=== PATIENT | male | born 1970 | race Caucasian/White ===

== ENCOUNTER 2017-01-15 02:42 | Emergency (ER) | payer OTHER ==
--- NOTE | ~2017-01-15 | CR141 ---
[facility] A Service of [facility] RADIOLOGY TEXT RESULTS PATIENT: MICHAEL GARCIA LOCATION: [facility] : 68 UNIT #: [id number] AGE: [address]: RUIZ ALEGRIA APRN SEX: M ORDER DR: [id number] [facility] [address] [place], [place] [address] [id number] MR#: [id number] Acc #: [id number] NAME: MICHAEL GARCIA. : 1970 SEX: M STUDY DATE/TIME: 01/15/2017 2:45 UNIT: [facility] ROOM: STUDY DESCRIPTION: CR Hand Min 3 Views Lt Attending Physician: Ruiz Alegria Aprn Ordering Physician: Ruiz Alegria Aprn Primary Care Physician: Raffi Verde M.D. MEDICAL IMAGING REPORT This report is preliminary unless electronic signature is present EXAM Left hand, 3 views COMPARISON August 09, 2012. INDICATIONS 46-year-old male with laceration to the dorsum of the hand while working on a car tonight. Left hand pain. FINDINGS There is a laceration seen at the level of the fourth and fifth distal metacarpals. No associated radiopaque foreign body. There is a healed fracture of the fifth metacarpal. The bones are anatomically aligned. No evidence of acute fracture. IMPRESSION No acute fracture, dislocation or radiopaque foreign body. Dictated by... Ivan Manjarrez M.D. THIS IS AN ELECTRONICALLY VERIFIED REPORT Ivan Manjarrez M.D. at 01/18/2017 7:45 PM Gisel TD: 01/15/2017 08:53 JOB #: [id number] MEDICAL IMAGING REPORT COPY
[~2017-01-15 02:42] MED LIST: ACETAMINOPHEN PO; ACETAMINOPHEN650 M1 PO; AMOXICILLIN PO; ANTIBIOTIC PO; ASPIRIN PO; ASPIRIN325 M1; ASPIRIN81 M2; ASPIRIN81 MG PO; BACTROBAN; BAYER ASPIRIN325 M1 PO; CALCIUM 500 + D1 TAB PO; CENTRUM PO; CERTAGEN PO; COLACE PO; DARVOCET-N 1001 TAB PO; FISH OIL 1,0001 CAP PO; FISH OIL 1,001000 MG PO; IBUPROFEN PO; IBUPROFEN800 MG PO; IRON1 TA1 PO; KEFLEX PO; KEFLEX500 MG PO; LISINOPRIL5 MG; LORTAB 5/500 TA1 TA1 PO; MILK OF MAGNESIA PO; MULTI-DAY1 TAB; MULTIVITAMIN1 UDCAP PO; OYSTER CALCIUM500 MG PO; PEPCID PO; PRILOSEC PO; ULTRAM PO; VICODIN PO; VITAMIN C1000 M2 PO; VITAMIN D1000 UNI1 PO
== END 2017-01-15 04:50 | disposition home or self-care (01) ==
LOC: CED 02:42
DX: S61.412A Laceration without foreign body of left hand, initial encounter (principal); I25.2 Old myocardial infarction; I10 Essential (primary) hypertension; W45.8XXA Other foreign body or object entering through skin, initial encounter; Y92.009 Unspecified place in unspecified non-institutional (private) residence as the place of occurrence of the external cause
CPT/HCPCS: 12042; 73130; 99283

== ENCOUNTER 2017-01-15 17:22 | Emergency (ER) | payer OTHER | END 2017-01-15 17:30 | disposition home or self-care (01) | LOC: CFTX 17:22 | DX: S61.412D Laceration without foreign body of left hand, subsequent encounter (principal); I25.2 Old myocardial infarction; I10 Essential (primary) hypertension; Z79.82 Long term (current) use of aspirin | CPT/HCPCS: 99281 ==

== ENCOUNTER 2017-01-27 01:40 | Emergency (ER) | payer OTHER | END 2017-01-27 01:45 | disposition home or self-care (01) | LOC: CED 01:40 | DX: S61.411D Laceration without foreign body of right hand, subsequent encounter (principal); I10 Essential (primary) hypertension; F17.200 Nicotine dependence, unspecified, uncomplicated; Z88.5 Allergy status to narcotic agent; X58.XXXD Exposure to other specified factors, subsequent encounter | CPT/HCPCS: 99281 ==

== ENCOUNTER 2017-03-20 03:42 | Inpatient (IN) | payer OTHER ==
--- NOTE | ~2017-03-20 | HP ---
Unit #: [id number] #: [id number] Patient: MICHAEL GARCIA [id number] [place] [address] [id number] I MR#: [id number] NAME: MICHAEL GARCIA. ROOM: [facility] Age: 46 Sex: M Admission Date: 03/20/2017 : 1970 Attending Physician: Ronald Razo M.D. Admitting Physician: Ronald Razo M.D. Primary Care Physician: Emma Doctor Not In System HISTORY AND PHYSICAL Faxed to [facility] on 03/22/2017. [facility] HISTORY OF PRESENT ILLNESS Michael is a 46-year-old male admitted on 03/20/2017 for detox from alcohol. PAST MEDICAL HISTORY Hypertension PAST SURGICAL HISTORY nasal reconstruction after an injury. SOCIAL HISTORY No tobacco or illegal drug use. Does report binge alcohol use. He is currently and living with his mother. FAMILY HISTORY Noncontributory. REVIEW OF SYSTEMS CONSTITUTIONAL: No fever or chills. HEENT: Denies any sore throat, ear pain or runny nose. CARDIOVASCULAR: Denies chest pain, irregular heart rhythm or palpitations. CHEST: Denies shortness of breath or cough. No hemoptysis. GASTROINTESTINAL: Denies nausea, vomiting, diarrhea or chronic constipation. ENDOCRINE: Denies history of increased thirst or urination. No recent significant weight loss or gain. GENITOURINARY: Denies dysuria, frequency, or hematuria. SKIN: Denies any rashes. HEMATOLOGIC: Denies history of increased bleeding or bruising. MUSCULOSKELETAL: Denies any hot, swollen joints. No generalized muscle pain. NEUROLOGIC: Denies problems with vision or speech. No frequent, severe headaches. No numbness, tingling or weakness in any extremities. Denies loss of bladder or bowel control. CURRENT MEDICATIONS Lisinopril and aspirin. ALLERGIES No known drug allergies. Unit #: [id number] #: [id number] Patient: MICHAEL GARCIA PHYSICAL EXAMINATION GENERAL: Alert, oriented, in no acute distress. VITAL SIGNS: Blood pressure 139/95, heart rate 97, respirations 18, temperature 97.7. HEIGHT: 6 foot 4 inches. WEIGHT: 240 pounds. SKIN: Warm and dry without rash or lesion. HEENT: Normocephalic. TMs not viewed. Oral and nasal passages clear. Conjunctivae clear. PERRLA. EOMs intact. NECK: Supple without lymphadenopathy or thyromegaly. HEART: Regular rate and rhythm without murmur. LUNGS: Clear. ABDOMEN: Soft, nontender, without masses or hepatosplenomegaly. : Not done. EXTREMITIES: No evidence of cyanosis, clubbing or edema. Moves all without focal deficit. NEUROLOGICAL: Grossly within normal limits. Cranial Nerves: II: Visual cali are intact. III, IV AND : Extraocular movements are intact. Pupils are equal, round and reactive to light. V: Facial sensation is grossly normal. VII: Facial movements and expression are normal. VIII: Auditory acuity grossly intact. IX, X: Uvula is midline. Phonation is normal. XI: Patient shrugs shoulders and turns head normally. XII: Tongue protrudes in the midline. Sensory and Motor Function: Sensory and motor sensation is grossly normal. Motor: moves all extremities well. Coordination: Gait is normal. Deep Tendon Reflexes: Intact. IMPRESSION Psychiatric admission. RECOMMENDATIONS Psychiatric, per psychiatrist. MEDICAL: I see no contraindications to participating in facility's activities. MEDICAL PROGNOSIS Good. MEDICAL CONDITION Stable. Dictated by... Sneha Sahni/shena TD: 03/20/2017 23:59 JOB #: [id number] Unit #: [id number] #: [id number] Patient: MICHAEL GARCIA HISTORY AND PHYSICAL Page 1 of 1 X CUBA SANTORO APRN HISTORY AND PHYSICAL
--- NOTE | ~2017-03-20 | PN ---
Unit #: [id number] #: [id number] Patient: MICHAEL GARCIA [id number] [facility] [address] [place] [address] [id number] I MR#: [id number] NAME: MICHAEL GARCIA. ROOM: 84 Age: 46 Sex: M Admission Date: 03/20/2017 : 1970 Attending Physician: Ronald Razo M.D. Admitting Physician: Ronald Razo M.D. Primary Care Physician: Emma Doctor Not In System [facility] PROGRESS NOTES DATE 03/21/2017 DISCUSSION Mr. Garcia is a 46-year-old, white male who was seen today and chart was reviewed and case was discussed with the staff. He has been anxious, withdrawn and rather seclusive to himself. Meanwhile, he has been cooperative with the treatment recommendations. He has been taking the medication and tolerating them fairly well with no reported side effects. MENTAL STATUS EXAM Middle-aged white male who was casually dressed with fair personal hygiene, appears to be in no acute distress or discomfort. He was awake and alert on interaction with intact orientation. His mood was anxious with congruent affect. He denies any suicidal or homicidal ideation. . TREATMENT PLAN 1. We will continue him on his current medications and treatment protocol. We will monitor his response to the medication and make further adjustments as needed. 2. We will continue to follow up. Dictated by... Waqas Snyder/shena TD: 03/22/2017 04:25 JOB #: [id number] Unit #: [id number] #: [id number] Patient: MICHAEL GARCIA [facility] PROGRESS NOTES Page 1 of 1 X Ronald Razo MD PROGRESS NOTE
--- NOTE | ~2017-03-20 | CO ---
Unit #: [id number] #: [id number] Patient: MICHAEL GARCIA [id number] [place] [address] [id number] I MR#: [id number] NAME: MICHAEL GARCIA. ROOM: [facility] Age: 46 Sex: M Admission Date: 03/20/2017 : 1970 Attending Physician: Ronald Razo M.D. Primary Care Physician: Generic Doctor Not In System Consultation Date: 03/20/2017 CONSULTATION REPORT Medical consult was requested by Dr. Razo. HISTORY OF PRESENT ILLNESS Michael had a UA that showed 500 of glucose, but negative ketones. He is unaware of any medical problems that could cause this. He denies burning urination. No frequency or decrease in urination, no excessive and has no other complaints. PHYSICAL EXAMINATION CARDIAC: Regular rate and rhythm. No murmurs, gallops, or rubs. RESPIRATORY: Clear to auscultation bilaterally. ASSESSMENT AND PLAN Glycosuria. We will repeat UA in the a.m. Lab results are pending. Once available, we will re-evaluate glucose and make adjustments as needed. Dictated by... Kaylan Moreno A.P.R.N. for Waqas Cardenas/michelet TD: 03/20/2017 17:31 JOB #: [id number] CONSULTATION REPORT Page 1 of 1 X KAYLAN SANTORO APRN X CONSULTATION REPORT
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
[2017-03-20 11:17] LABS: URINE APPEARANCE TURBID; URINE BILIRUBIN NEG (NEG); URINE BLOOD NEG (NEG); URINE COLOR YELLOW; URINE GLUCOSE 500 MG/DL (NEG); URINE KETONE NEG (NEG); URINE LEUKOCYTE ESTERASE NEG (NEG); URINE NITRATE NEG (NEG); URINE PROTEIN NEG (NEG); URINE SPECIFIC GRAVITY 1.018 (1.003-1.035); URINE UROBILINOGEN 0.2 MG/DL (NEG)
[2017-03-20 11:40] LABS: AMPHETAMINE NEG (NEG); BARBITURATES NEG (NEG); BENZODIAZEPINES NEG (NEG); COCAINE NEG (NEG); MARIJUANA NEG (NEG); OPIATES NEG (NEG); TRICYCLIC ANTIDEPRESSANTS NEG (NEG); U METHADONE NEG (NEG)
[2017-03-21 09:36] LABS: URINE APPEARANCE CLEAR; URINE BILIRUBIN NEG (NEG); URINE BLOOD NEG (NEG); URINE COLOR YELLOW; URINE GLUCOSE 500 MG/DL (NEG); URINE KETONE NEG (NEG); URINE LEUKOCYTE ESTERASE NEG (NEG); URINE NITRATE NEG (NEG); URINE PH 5.5 (5-8); URINE PROTEIN NEG (NEG); URINE SPECIFIC GRAVITY 1.019 (1.003-1.035); URINE UROBILINOGEN 0.2 MG/DL (NEG)
[2017-03-21 09:40] LABS: BASOPHIL% 0.6 % (0-2.5); EOSINOPHIL# 0.3 X10e3 (0-0.7); EOSINOPHIL% 4.4 % (0.0-7.0); HEMATOCRIT 46.5 % (38.0-50.0); HEMOGLOBIN 15.9 gm/dL (13.0-16.0); LYMPHOCYTE# 2.2 X10e3 (1.0-3.5); LYMPHOCYTE% 33.6 % (17.0-45.0); MEAN CELL VOLUME 95.9 FL (83-96); MEAN CORPUSCULAR HEMOGLOBIN 32.8 PG (28-34); MEAN CORPUSCULAR HGB CONC 34.2 g/dL (30-36); MEAN PLATELET VOLUME 10.1 FL (6.5-11.5); MONOCYTE# 0.7 X10e3 (0-1.0); MONOCYTE% 10.5 % (3.0-12.0); NEUTROPHIL# 3.4 X10e3 (1.5-7.1); NEUTROPHIL% 50.9 % (40-75); PLATELET COUNT 153 X10e3 (140-420); RED BLOOD COUNT 4.85 X10e (3.90-5.60); RED CELL DISTRIBUTION WIDTH 12.5 % (11.0-15.5); WHITE BLOOD COUNT 6.7 X10e3 (4.0-10.5)
[2017-03-21 09:47] LABS: DIFF IND NO
[2017-03-21 09:48] LABS: ALBUMIN SERUM 3.5 g/dL (3.5-5.0); BILIRUBIN,TOTAL 2.6 mg/dL (0.2-2.0); BUN/CREATININE RATIO 12.22; CALCIUM SERUM 8.8 mg/dL (8.4-10.2); CREATININE SERUM 0.9 mg/dL (0.6-1.4); GLOM FILT RATE Estimated 101.4 mL/min (>60); POTASSIUM 4.2 mmol/L (3.5-5.1); PROTEIN TOTAL SERUM 6.1 g/dL (6.0-8.3)
== END 2017-03-22 10:20 | DRG 897 ==
LOC: P2L 03:42 → P1E 04:45
PROVIDERS: Psychiatry & Neurology Psychiatry
PROC: HZ2ZZZZ Detoxification Services for Substance Abuse Treatment (ICD-10-PCS; principal; 2017-03-20)
DX: F10.20 Alcohol dependence, uncomplicated (principal); F31.32 Bipolar disorder, current episode depressed, moderate; I10 Essential (primary) hypertension; R81 Glycosuria
CPT/HCPCS: 80053; 80307; 81003; 85025

== ENCOUNTER 2017-04-15 22:35 | Observation (INO) | payer OTHER ==
--- NOTE | ~2017-04-15 | ST ---
Unit #: [id number] #: [id number] Patient: MICHAEL GARCIA [id number] [facility]. [address] [address] [id number] I MR#: [id number] NAME: MICHAEL GARCIA. : 1970 SEX: M STUDY DATE/TIME: 04/17/2017 UNIT: [facility] ROOM: 572 STUDY DESCRIPTION: Attending Physician: Maty Roland M.D. Primary Care Physician: Marilu Rueda M.D. CARDIOLOGY REPORT EXAM Exercise Cardiolite stress test. DESCRIPTION AND FINDINGS Baseline EKG shows normal sinus rhythm with a rate of 75 beats per minute, otherwise normal. The patient exercised on a treadmill using Ronnie protocol for 7 minutes and 2 seconds achieving a workload of 7 METS. Ninety percent (90%) of the maximal age-predicted heart rate was reached at 157 beats per minute with a maximum blood pressure response of 190/100 mmHg. The patient had no complaints of chest pain, palpitations, or dizziness. EKG during exercise showed no ST or T wave abnormalities. No arrhythmias were seen. The test was terminated secondary to achieving target heart rate. IMPRESSION 1. Good exercise tolerance with a workload of 7 METS. 2. Ninety percent (90%) of the maximal age-predicted heart rate was reached at 157 beats per minute with a hypertensive blood pressure response. 3. The patient had no complaints of chest pain, palpitations, or dizziness. 4. EKG showed no ST or T wave abnormalities. No arrhythmias were seen. 5. Cardiolite was injected at peak exercise with radionuclide test pending. Please correlate this results with nuclear images. 1. Dictated by... Anibal Wright A.P.R.N. for Waqas Senior/tsering TD: 04/17/2017 17:31 JOB #: [id number] Unit #: [id number] #: [id number] Patient: MICHAEL GARCIA CARDIOLOGY REPORT Page 1 of 1 X Anibal Wright APRN CARDIOLOGY REPORT
--- NOTE | ~2017-04-15 | HP ---
Unit #: [id number] #: [id number] Patient: MICHAEL GARCIA [id number] [facility]. [address] [place], [place] [address] [id number] I MR#: [id number] NAME: MICHAEL GARCIA ROOM: 572 Age: 46 Sex: M Admission Date: 04/16/2017 : 1970 Attending Physician: Maty Roland M.D. Primary Care Physician: Marilu Rueda M.D. HISTORY AND PHYSICAL HISTORY OF PRESENT ILLNESS This is a 46-year-old white male who presented to the emergency room with the complaint of chest pain. Yesterday afternoon he was putting the radiator on a car. At 10 p.m. he began to have substernal chest pressure as if someone was sitting on his chest. His left arm felt numb. He had some nausea but no dyspnea or diaphoresis initially. Later he developed dyspnea. The chest pain was ongoing with no alleviating or aggravating factors. He came to the emergency room for evaluation where he was given nitroglycerin sublingual x1, but his blood pressure dropped to 95/63 mmHg after 1 dose. He was also treated with aspirin. Troponin negative x3 with no acute electrocardiogram changes. From a cardiac standpoint the patient states he is usually active without any symptoms. He has risk factors for ischemic heart disease, including hypertension and nicotine abuse with smokeless tobacco. He had a stress test in 2009 that was normal. Later on in the year he presented again with chest pain and underwent cardiac catheterization and was found to have angiographically normal coronaries. The patient went to his primary care physician approximately 3 weeks ago, and lisinopril was changed to Metoprolol for control of his blood pressure. PAST MEDICAL HISTORY 1. Exercise Cardiolite stress test 01/06/2010 showed an ejection fraction of 56%. No stress-induced ischemia. 2. Cardiac catheterization 07/24/2010 showed normal coronaries with ejection fraction of 50%. 3. Hypertension. 4. Bipolar disorder. 5. Smokeless tobacco use. PAST SURGICAL HISTORY 1. Right hand surgery. 2. Left hand surgery. 3. Nasal surgery. 4. Bilateral knee surgeries. 5. Left ankle surgery. 6. Bilateral arm surgeries. SOCIAL HISTORY Patient is not employed. He does not smoke cigarettes but uses smokeless tobacco. Drinks beer on occasion. FAMILY HISTORY Mother is currently living and well. No coronary artery disease in his father. Unit #: [id number] #: [id number] Patient: MICHAEL GARCIA ALLERGIES Hydrocodone and bananas. HOME MEDICATIONS 1. Aspirin 325 mg daily. 2. Multivitamin 1 tablet daily. 3. Risperdal 0.5 mg b.i.d. 4. Metoprolol tartrate 25 mg b.i.d. REVIEW OF SYSTEMS CONSTITUTIONAL: Negative for fever or chills. Reports no weight gain or weight loss. HEENT: No headache, hearing or visual changes or difficulty with swallowing. No dizziness. CARDIOVASCULAR: Has chest pain as described in the HPI. Denies palpitations. No paroxysmal nocturnal dyspnea or orthopnea. No syncope or pre-syncope. RESPIRATORY: Had dyspnea that accompanied chest pain. No cough or hemoptysis. GASTROINTESTINAL: No abdominal pain, nausea or vomiting. No constipation or melena. EXTREMITIES: Negative for lower extremity edema. PHYSICAL EXAMINATION VITAL SIGNS: Blood pressure 145/95, heart rate 71, temperature 98.1, BMI 27. GENERAL: This is a very tall 46-year-old white male who is in no acute distress. NEUROLOGIC: He is awake, alert and oriented. There are no focal weaknesses. NECK: Trachea is midline. No thyromegaly or lymphadenopathy. No jugular venous distention. HEART: S1, S2. Heart sounds are normal. No murmurs, no rubs, no clicks. Regular rate and rhythm. LUNGS: Clear without rales, rhonchi or wheezing. ABDOMEN: Soft, nontender, with bowel sounds present. EXTREMITIES: Without leg edema. SKIN: Warm and dry. DIAGNOSTIC STUDIES LABORATORY STUDIES: Glucose 133, BUN 14, creatinine 0.9, sodium 140, potassium 3.5, AST 51, ALT 68. Cholesterol 191, triglycerides 271, LDL 94, HDL 43. TSH 3.12. CK total 176, MB 2.8, MB index 1.6, troponin less than 0.05 x2 and less than 0.03. White count 10.3, hemoglobin 15.9, hematocrit 47.2, platelet count 142. D-dimer 1,091. Alcohol level 225. DIAGNOSTIC IMAGING: Chest x-ray shows no active disease. Stable cardiomegaly. CT of the chest per PE protocol negative for pulmonary embolism. CARDIOVASCULAR STUDIES: Electrocardiogram - Normal sinus rhythm with no acute ischemic changes. IMPRESSION 1. Atypical chest pain. 2. Hypertension. Unit #: [id number] #: [id number] Patient: MICHAEL GARCIA 3. Normal coronaries per cardiac catheterization in 2009. 4. Bipolar disorder. 5. Smokeless tobacco use. PLAN 1. The patient's chest pain is atypical for ischemic heart disease. It appears to be musculoskeletal in origin. His chest pain is reproducible with palpation to his substernal chest. Because he has risk factors for ischemic heart disease, will proceed with exercise Cardiolite stress test to rule out coronary artery disease. 2. D-dimer is elevated, but CT of the chest negative for pulmonary embolism. 3. Encourage the patient to abstain from alcohol use. 4. Lipid profile shows elevated triglycerides, but cholesterol and LDL within normal limits. Dictated by Sneha Siddiqui M.D. AEP/maria de jesus TD: 04/16/2017 11:09 JOB #: [id number] HISTORY AND PHYSICAL Page 1 of 1 X Anibal Wright APRN HISTORY AND PHYSICAL
--- NOTE | ~2017-04-15 | CR72 ---
[facility] A Service of [facility] & [facility] RADIOLOGY TEXT RESULTS PATIENT: MICHAEL GARCIA LOCATION: [facility] 572-01 : [birth year] UNIT #: [id number] AGE: [address]: Maty Roland MD SEX: M ORDER DR: [id number] [facility] [address] [facility]. [place], [place] [address] [id number] I MR#: [id number] Acc #: [id number] NAME: MICHAEL GARCIA. : 1970 SEX: M STUDY DATE/TIME: 04/15/2017 23:22 UNIT: [facility] ROOM: [facility] STUDY DESCRIPTION: CR Chest Single View Portable Attending Physician: Maty Roland M.D. Ordering Physician: Ed Sahil Kaplan M.D. Primary Care Physician: Marilu Rueda M.D. MEDICAL IMAGING REPORT This report is preliminary unless electronic signature is present EXAM Portable chest INDICATION Chest pain today. PROCEDURE Frontal view chest. COMPARISON 03/23/2015 FINDINGS Stable cardiomegaly. No dense consolidation, pleural fluid, or pneumothorax. IMPRESSION No active process. Dictated by... Gaudencio Richards M.D. THIS IS AN ELECTRONICALLY VERIFIED REPORT Gaudencio Richards M.D. at 04/16/2017 10:00 PM ELVIA/thiago TD: 04/16/2017 07:58 JOB #: [id number] MEDICAL IMAGING REPORT Page 1 of 1 COPY
--- NOTE | ~2017-04-15 | CT16 ---
[facility] A Service of [facility] RADIOLOGY TEXT RESULTS PATIENT: MICHAEL GARCIA LOCATION: [facility] 572-01 : [birth year] UNIT #: [id number] AGE: [address]: Maty Roland MD SEX: M ORDER DR: [id number] [facility] [address] [place], [place] [address] [id number] MR#: [id number] Acc #: [id number] NAME: MICHAEL GARCIA. : 1970 SEX: M STUDY DATE/TIME: 04/16/2017 8:55 UNIT: [facility] ROOM: [facility] STUDY DESCRIPTION: CT Angio Chest for PE Attending Physician: Maty Roland M.D. Ordering Physician: Maty Roland M.D. Primary Care Physician: Marilu Rueda M.D. MEDICAL IMAGING REPORT This report is preliminary unless electronic signature is present EXAM CT angiography of the chest with IV contrast, PE protocol COMPARISON June 11, 2013 INDICATION 46-year-old male with chest pain and dyspnea for one day. Elevated D-dimer. Hypotension. TECHNIQUE Axial CT imaging of the chest was performed during pulmonary arterial phase after IV administration of 80 mL Isovue-370. Coronal MIPs and sagittal reformats were constructed. This CT exam was performed with one or more of the following radiation dose reduction techniques: automatic exposure control, adjustment of mA and/or kV according to patient size, and iterative reconstruction. FINDINGS Minimal bilateral gynecomastia. Healed fracture of the left clavicle. No acute fractures or suspicious osseous lesions. Normal heart size. Normal caliber of the pulmonary artery and thoracic aorta. No adenopathy. Evaluation of pulmonary embolus is limited by cardiac pulsation artifact and timing of contrast bolus. This particularly limits evaluation for subsegmental embolus in the upper lobes. No pulmonary embolus is seen on this exam. Airways are patent. No pneumothorax, pleural effusion or acute airspace disease. Hepatic steatosis. No acute findings in the upper abdomen. 1.1 cm short axis portocaval lymph node, likely reactive and stable from 2012. [facility] A Service of [facility] RADIOLOGY TEXT RESULTS PATIENT: MICHAEL GARCIA LOCATION: [facility] 572-01 : [birth year] UNIT #: [id number] AGE: [address]: Maty Roland MD SEX: M ORDER DR: IMPRESSION 1. Evaluation for pulmonary embolus in subsegmental branches in both upper lobes is limited due to timing of contrast bolus. No evidence of pulmonary embolus is present on this exam. If indicated, repeat CT angiography could be attempted but correlation with the level of suspicion for pulmonary embolus is recommended. Alternatively, VQ scan could be considered. There is no evidence of pneumothorax, pleural effusion or acute airspace disease. 2. Hepatic steatosis. Dictated by... Ivan Manjarrez M.D. THIS IS AN ELECTRONICALLY VERIFIED REPORT Ivan Manjarrez M.D. at 04/23/2017 2:22 PM Denise TD: 04/16/2017 12:31 JOB #: [id number] MEDICAL IMAGING REPORT Page 1 of 1 COPY
--- NOTE | ~2017-04-15 | EKG ---
PATIENT: MICHAEL GARCIA UNIT #: [id number] Ventricular Rate: 90 BPM Atrial Rate: 90 BPM P-R Interval: 148 ms QRS Duration: 86 ms Q-T Interval: 366 ms QTC Calculation(Bezet): 447 ms P [place]: 11 degrees Calculated R [place]: 1 degrees Calculated T [place]: 36 degrees Diagnosis Line: Normal sinus rhythm Diagnosis Line: Normal ECG Diagnosis Line: When compared with ECG of 22-MAR-2015 23:07, Diagnosis Line: Criteria for Septal infarct are no longer Present Diagnosis Line: Confirmed by FARIHA CASTILLO MD ([id number]) on Diagnosis Line: 04/18/2017 9:36:57 PM INTERPRETING MD: ANNA WINTER
--- NOTE | ~2017-04-15 | TH ---
Unit #: [id number] #: [id number] Patient: MICHAEL GARCIA [id number] [facility]. [address] [address] [id number] I MR#: [id number] NAME: MICHAEL GARCIA. : 1970 SEX: M STUDY DATE/TIME: 04/17/2017 UNIT: [facility] ROOM: 572 STUDY DESCRIPTION: Exercise stress test - Nuclear Attending Physician: Maty Roland M.D. Primary Care Physician: Marilu Rueda M.D. CARDIOLOGY REPORT PROCEDURE PERFORMED Exercise Cardiolite stress test - Nuclear portion. PROCEDURE Using technetium 99m-labeled Cardiolite, rest and stress SPECT images were obtained. Multiple SPECT images were obtained in various views, including horizontal and vertical long axis and short axis views of the left ventricle. Images were obtained by gated SPECT method. The patient was administered 11.24 mCi of Cardiolite at rest. The patient was administered 29.9 mCi of Cardiolite at peak exercise. Total exercise time is 7 minutes. On the stress images, there is normal perfusion noted. The rest images show normal perfusion. Comparing the rest and stress images, there is no stress-induced ischemia noted. The left ventricular ejection fraction is calculated to be 48%. There is no focal wall motion abnormality seen. CONCLUSION 1. No obvious stress-induced ischemia noted. 2. The left ventricular ejection fraction is calculated to be 48%. 3. There is no focal wall motion abnormality seen. 4. The left ventricular cavity is mildly dilated. 5. Technically very limited study due to increased gut uptake. Clinical correlation is requested. Dictated by... Waqas Senior TD: 04/17/2017 13:16 JOB #: [id number] Unit #: [id number] #: [id number] Patient: MICHAEL GARCIA CARDIOLOGY REPORT Page 1 of 1 X Maty Roland MD <ELECTRONICALLY SIGNED> 06/11/17 [id number] CARDIOLOGY REPORT
[2017-04-15 23:15] LABS: POC - CKMB 1.8 ng/mL (0.0-7.9); POC - TROPONIN <0.05 ng/mL (<=0.05)
[2017-04-15 23:30] LABS: BASOPHIL# 0.1 X10e3 (0-0.3); BASOPHIL% 0.8 % (0-2.5); EOSINOPHIL# 0.5 X10e3 (0-0.7); EOSINOPHIL% 5.1 % (0.0-7.0); HEMATOCRIT 47.2 % (38.0-50.0); HEMOGLOBIN 15.9 gm/dL (13.0-16.0); LYMPHOCYTE# 3.6 X10e3 (1.0-3.5); LYMPHOCYTE% 35.2 % (17.0-45.0); MEAN CELL VOLUME 95.6 FL (83-96); MEAN CORPUSCULAR HEMOGLOBIN 32.2 PG (28-34); MEAN CORPUSCULAR HGB CONC 33.7 g/dL (30-36); MEAN PLATELET VOLUME 9.6 FL (6.5-11.5); MONOCYTE# 0.9 X10e3 (0-1.0); MONOCYTE% 8.3 % (3.0-12.0); NEUTROPHIL# 5.2 X10e3 (1.5-7.1); NEUTROPHIL% 50.6 % (40-75); PLATELET COUNT 192 X10e3 (140-420); RED BLOOD COUNT 4.94 X10e (3.90-5.60); RED CELL DISTRIBUTION WIDTH 12.6 % (11.0-15.5); WHITE BLOOD COUNT 10.3 X10e3 (4.0-10.5)
[2017-04-15 23:34] LABS: DIFF IND NO
[2017-04-15 23:45] LABS: PARTIAL THROMBOPLASTIN TIME 25.6 SECONDS (23.5-31.3); PROTHROMBIN TIME (PATIENT) 10.9 SECONDS (9.6-11.5)
[2017-04-15 23:54] LABS: ALBUMIN SERUM 3.8 g/dL (3.5-5.0); BILIRUBIN, DIRECT 0.1 mg/dL (0.0-0.2); BILIRUBIN,INDIRECT 0.4 mg/dL (0.0-0.9); BILIRUBIN,TOTAL 0.5 mg/dL (0.2-2.0); BUN/CREATININE RATIO 15.55; CALCIUM SERUM 8.5 mg/dL (8.4-10.2); CREATININE SERUM 0.9 mg/dL (0.6-1.4); GLOM FILT RATE Estimated 101.4 mL/min (>60); POTASSIUM 3.5 mmol/L (3.5-5.1)
[2017-04-16 01:08] LABS: POC - CKMB 1.2 ng/mL (0.0-7.9); POC - TROPONIN <0.05 ng/mL (<=0.05)
[2017-04-16] MEDS ORDERED: MULTIVITAMINS1 EAC3 PO (02:02)
[2017-04-16] MEDS ORDERED: RISPERDAL0.5 MG PO (02:02)
[2017-04-16] MEDS ORDERED: BAYER CHEWABLE81 MG PO (02:02)
[2017-04-16] MEDS ORDERED: METOPROLOL TAR25 MG PO (02:02)
[2017-04-16 07:34] LABS: CHOLESTEROL 191 mg/dL (0-200); HDL CHOLESTEROL 43 mg/dL (29-75); LDL CHOLESTEROL 94 mg/dL (-130); LDL/HDL RATIO 2 RATIO (0-4); TRIGLYCERIDES 271 mg/dL (10-160)
[2017-04-16 07:52] LABS: %MB 1.6 % (0.0-4.0); MB 2.8 ng/ml
[2017-04-16 15:15] LABS: MB 2.9 ng/ml
[2017-04-17] MEDS ORDERED: LISINOPRIL10 MG PO (11:53)
[2017-04-17] MEDS ORDERED: MULTIVITAMINS1 EAC3 PO (11:55)
== END 2017-04-17 18:30 | disposition home or self-care (01) ==
LOC: CED 22:35 → C5C 04-16 02:38 → CEDOF 04-16 02:38 → C5C 04-16 07:31
PROVIDERS: Emergency Medicine
DX: R07.89 Other chest pain (principal); I10 Essential (primary) hypertension; F31.9 Bipolar disorder, unspecified; Z72.0 Tobacco use; Z79.82 Long term (current) use of aspirin; Z88.5 Allergy status to narcotic agent; Z91.018 Allergy to other foods
CPT/HCPCS: 71010; 71275; 78452; 80048; 80061; 80076; 82550; 82553; 83880; 84443; 84484; 85025; 85379; 85610; 85730; 93005; 93017; 93306; 96372; 96374; 99285; A9500; G0378; G0480; J1650; J2405; Q9967